=== PATIENT | female | born 1970 | race Caucasian/White ===

== ENCOUNTER 2024-08-03 17:55 | Outpatient (REF) | payer MEDICARE, SELFPAY ==
[2024-08-03 21:41] LABS: HCT 37.7 % (36.0-46.0); HGB 12.4 g/dL (11.2-15.7); MCH 32.4 pg (27.0-33.0); MCHC 32.9 % (32.0-36.0); MCV 98 fL (80-95); MPV 9.5 fL (8.0-11.0); Platelet Count 317 10^3/uL (130-400); RBC 3.83 10^6/uL (3.93-5.22); RDW 12.9 % (11.7-14.6); RDW-SD 46.5 fL; WBC 7.77 10^3/uL (4.4-10.8)
[2024-08-03 22:22] LABS: ALT 33 U/L (14-59); AST 17 U/L (15-37); Albumin 4.1 g/dL (3.4-5.0); Alkaline Phosphatase 89 U/L (46-116); Anion Gap 6.5 mmol/L (3-11); BUN 18 mg/dL (7-18); Bilirubin, Total 0.27 mg/dL (0.2-1.0); CO2 30.5 mmol/L (21.0-32.0); Calculated LDL 119 mg/dL (<100); Chloride 107 mmol/L (98-107); Cholesterol 203 mg/dL (<200); Estimated GFR 66.53 (mL/min/1.73m2); Folate 12.7 ng/mL (8.6-20.0); Glucose 96 mg/dL (74-106); HDL Cholesterol 66 mg/dL (40-60); Potassium 3.8 mmol/L (3.5-5.1); Sodium 144 mmol/L (136-145); TSH (W/Ref FT4) 3.68 uIU/mL (0.36-3.74); Total Protein 7.6 g/dL (6.4-8.2); Triglyceride 91 mg/dL (<150); Vitamin B12 324 pg/mL (193-986)
== END 2024-08-03 17:56 | disposition home or self-care (01) ==
LOC: NCHCN 17:55
PROVIDERS: Visit Provider Family Medicine
DX: F10.20 Alcohol dependence, uncomplicated (principal); E55.9 Vitamin D deficiency, unspecified; Z13.220 Encounter for screening for lipoid disorders; Z13.29 Encounter for screening for other suspected endocrine disorder
CPT/HCPCS: 80053; 80061; 82306; 85027; 82607; 82746; 84443

== ENCOUNTER 2024-12-02 11:47 | Outpatient (REF) | payer MEDICARE, SELFPAY ==
--- NOTE | 2024-12-02 16:00 | PAPFT_PTH ---
PATIENT: Deja Alaniz LOC: [facility]#:[id number] AGE/SX: 54/F ROOM: RE12/02/[address]: JAMMIE: 1970 BED: DIS: 12/02/2024 SPEC #: [id number] RECD: 12/03/24 13:21 STATUS: GIBSON RUSSELL #: [id number] LIAM: 12/02/24 16:[address]: Mariella Montalvo DEPT: [facility] Cytology RECD BY: Mariya Henson Tissues: 1 - CX/ENDOCX FOR PAP SMEARS Procedures: PAP THIN PREP/[facility] Screening HPV DNA PROBE Comments: [id number] (HPV 16 & 18/45)
== END 2024-12-02 11:48 | disposition home or self-care (01) ==
LOC: NCHCN 11:47
PROVIDERS: PCP Family Medicine; Visit Provider Family Medicine
DX: Z11.51 Encounter for screening for human papillomavirus (HPV) (principal); Z01.419 Encounter for gynecological examination (general) (routine) without abnormal findings
CPT/HCPCS: 88142; 87624